=== PATIENT | male | born 1940 | race Caucasian/White ===

== ENCOUNTER 2023-10-16 20:45 | Inpatient (IN) | payer MEDICARE ==
[~2023-10-16] VITALS: Ht 170.2 cm; Wt 81.2 kg
[2023-10-16 20:51] VITALS: BP 159/62; PULSE 73; RESP 20; TEMP 97.7; O2SAT 99
[2023-10-16] MEDS ORDERED: cefTRIAXone 1,000 MG VIAL ONE (21:16)
[2023-10-16] MEDS: cefTRIAXone 1,000 MG in DEXT 5% MINI-BAG PLUS 50 ML IV ONE (21:18)
[2023-10-16] MEDS: NACL 0.9% 1,000 ML IV SCH (21:19)
[2023-10-16 21:34] LABS: BASOPHILS # (AUTO) 0.1 K/uL (0.00-0.22); BASOPHILS % (AUTO) 1.2 % (0.0-2.0); EOSINOPHILS # (AUTO) 1.1 K/uL (0-0.4); EOSINOPHILS % (AUTO) 13.6 % (0.0-4.0); HEMOGLOBIN 8.2 g/dL (12.0-18.0); LYMPHOCYTES # (AUTO) 2.6 K/uL (2.0-11.5); LYMPHOCYTES % (AUTO) 33.6 % (20.5-51.1); MEAN CORPUSCULAR HEMOGLOBIN 33 pg (27-31); MEAN CORPUSCULAR HGB CONC 34 g/dL (33-37); MEAN CORPUSCULAR VOLUME 96.5 fL (80-94); MONOCYTES # (AUTO) 0.2 K/uL (0.8-1.0); MONOCYTES % (AUTO) 2.6 % (1.7-9.3); NEUTROPHILS # (AUTO) 3.9 K/uL (1.8-7.7); PLATELET COUNT (AUTO) 266 K/uL (140-450); RED BLOOD CELL COUNT(AUTO) 2.49 MIL/uL (4.20-6.10); RED CELL DISTRIBUTION WIDTH 30.8 % (11.6-13.7); WHITE BLOOD COUNT (AUTO) 7.9 K/uL (4.8-10.8)
[2023-10-16 21:40] LABS: ANION GAP 11.9 (8-16); CARBON DIOXIDE 29.3 mmol/L (21-32); CHLORIDE 103 mmol/L (98-107); CREATININE 1.4 mg/dL (0.6-1.3); GLUCOSE 333 mg/dL (74-106); POTASSIUM 4.2 mmol/L (3.5-5.1); SODIUM SERUM 140 mmol/L (136-145); UREA NITROGEN, BLOOD 16 mg/dL (7-18)
[2023-10-16 21:51] LABS: LACTIC ACID 2.6 mmol/L (0.4-2.0)
[2023-10-16 21:54] LABS: FLU A ANTIGEN negative (NEGATIVE)
[2023-10-16 21:55] LABS: FLU B ANTIGEN NEGATIVE (NEGATIVE)
[2023-10-16 22:40] LABS: APPEARANCE,URINE CLEAR (CLEAR); BILIRUBIN,URINE NEGATIVE (NEGATIVE); BLOOD, URINE NEGATIVE (NEGATIVE); COLOR,URINE YELLOW (YELLOW); LEUKOCYTE ESTERASE ,URINE NEGATIVE (NEGATIVE); NITRITE, URINE NEGATIVE (NEGATIVE); PROTEIN,URINE 1+ (NEGATIVE); UGLUCOSE 3+ (NEGATIVE); UROBILINOGEN,URINE 0.2 EU/dL (0.2 - 1)
[2023-10-16 22:42] LABS: ALBUMIN 3.6 g/dL (3.4-5.0); BILIRUBIN,DIRECT 0.2 mg/dL (0.0-0.3); INR 0.94 (0.8-1.2); PARTIAL THROMBOPLASTIN TIME 25.4 secs (22-35.6); PROTHROMBIN TIME 9.9 secs (10.8-13.4); TOTAL BILIRUBIN 0.7 mg/dL (0.0-1.0); TOTAL PROTEIN, SERUM 6.7 g/dL (6.4-8.2)
[2023-10-16] MEDS: NACL 0.9% 1,000 ML IV ONE (22:43)
[2023-10-17] VITALS (7 sets, daily range): BP systolic 111–168; BP diastolic 63–90; PULSE 67–77; RESP 18; TEMP 97.3–98.7; O2SAT 97–99
[2023-10-17] MEDS ORDERED: POTASSIUM CHLORIDE 10 MEQ TABER PO PRN (00:20)
[2023-10-17] MEDS ORDERED: ACETAMINOPHEN 325 MG TAB PO PRN (00:20)
[2023-10-17] MEDS ORDERED: MELATONIN 3 MG TAB PO PRN (00:20)
[2023-10-17] MEDS: NACL 0.9% 1,000 ML IV SCH (00:20)
[2023-10-17] MEDS ORDERED: MAG SULF 2000 MG/WATER PREMIX 50 ML IV PRN (00:20)
[2023-10-17] MEDS ORDERED: MORPHINE SULFATE 2 MG/ML SYR IVP PRN (00:20)
[2023-10-17] MEDS ORDERED: ONDANSETRON 4 MG/2 ML VIAL IVP PRN (00:20)
[2023-10-17] MEDS ORDERED: DEXTROSE 50% 50 ML SYR IVP PRN (00:30)
[2023-10-17] MEDS: INSULIN LISPRO SLIDING SCALE 100 UNITS/ML VIAL SUBQ PRN (06:36)
[2023-10-17] MEDS: BLOOD GLUCOSE MONITORING 1 DEV DEV FS SCH (06:38)
[2023-10-18] VITALS: BP 150/65; PULSE 69; PULSE 70; RESP 18; TEMP 97.8; O2SAT 98
[2023-10-18 04:00] VITALS: BP 143/70; PULSE 68; PULSE 69; RESP 18; TEMP 97.9; O2SAT 97
[2023-10-18] MEDS: HYDROcodone/APAP 5/325 MG 1 TAB TAB PO PRN (04:49)
[2023-10-18 05:41] LABS: BASOPHILS % (AUTO) 0.5 % (0.0-2.0); EOSINOPHILS # (AUTO) 1.1 K/uL (0-0.4); EOSINOPHILS % (AUTO) 12.5 % (0.0-4.0); HEMATOCRIT 22.2 % (36-52); HEMOGLOBIN 7.5 g/dL (12.0-18.0); MEAN CORPUSCULAR HEMOGLOBIN 33 pg (27-31); MEAN CORPUSCULAR HGB CONC 34 g/dL (33-37); MEAN CORPUSCULAR VOLUME 96.6 fL (80-94); MONOCYTES # (AUTO) 0.2 K/uL (0.8-1.0); MONOCYTES % (AUTO) 2.4 % (1.7-9.3); NEUTROPHILS # (AUTO) 4.4 K/uL (1.8-7.7); NEUTROPHILS % (AUTO) 50.6 % (42.2-75.2); PLATELET COUNT (AUTO) 269 K/uL (140-450); RED CELL DISTRIBUTION WIDTH 31.1 % (11.6-13.7); WHITE BLOOD COUNT (AUTO) 8.7 K/uL (4.8-10.8)
[2023-10-18 06:10] LABS: ALANINE AMINOTRANSFERASE 26 U/L (12-78); ALBUMIN 3.3 g/dL (3.4-5.0); ALKALINE PHOSPHATASE 44 U/L (50-136); ANION GAP 10.6 (8-16); ASPARTATE AMINOTRANSFERASE 18 U/L (15-37); CALCIUM 8.3 mg/dL (8.5-10.1); CARBON DIOXIDE 27.6 mmol/L (21-32); CHLORIDE 107 mmol/L (98-107); CREATININE 1.2 mg/dL (0.6-1.3); GLUCOSE 156 mg/dL (74-106); MAGNESIUM 1.8 mg/dL (1.8-2.4); PHOSPHORUS 3.1 mg/dL (2.5-4.9); POTASSIUM 4.2 mmol/L (3.5-5.1); SODIUM SERUM 141 mmol/L (136-145); TOTAL BILIRUBIN 0.8 mg/dL (0.0-1.0); TOTAL PROTEIN, SERUM 6.2 g/dL (6.4-8.2); UREA NITROGEN, BLOOD 10 mg/dL (7-18)
[2023-10-18 08:00] VITALS: BP 159/69; PULSE 64; PULSE 67; RESP 17; TEMP 97.8; O2SAT 96
[2023-10-18] MEDS: PANTOPRAZOLE 40 MG INJ VIAL IVP SCH (08:29)
[2023-10-18 12:00] VITALS: BP 151/71; PULSE 67; PULSE 80; RESP 18; TEMP 97.8; O2SAT 100
[2023-10-18] MEDS ORDERED: HYDROCOLLOID DRESSING TP PRN (12:25)
[2023-10-18 16:00] VITALS: BP 144/68; PULSE 68; PULSE 70; RESP 18; TEMP 97.9; O2SAT 95
[2023-10-18 20:00] VITALS: BP 151/71; PULSE 64; PULSE 67; PULSE 68; RESP 18; TEMP 97.5; O2SAT 95
[2023-10-19] VITALS: BP 156/66; PULSE 61; PULSE 70; RESP 19; TEMP 97.7; O2SAT 97
[2023-10-19 04:00] VITALS: BP 148/94; PULSE 65; PULSE 69; RESP 18; TEMP 97.5; O2SAT 99
[2023-10-19 05:35] LABS: BASOPHILS # (AUTO) 0.1 K/uL (0.00-0.22); BASOPHILS % (AUTO) 0.6 % (0.0-2.0); EOSINOPHILS # (AUTO) 1.1 K/uL (0-0.4); EOSINOPHILS % (AUTO) 12.3 % (0.0-4.0); HEMATOCRIT 23.8 % (36-52); HEMOGLOBIN 7.8 g/dL (12.0-18.0); LYMPHOCYTES # (AUTO) 2.6 K/uL (2.0-11.5); LYMPHOCYTES % (AUTO) 30.8 % (20.5-51.1); MEAN CORPUSCULAR HEMOGLOBIN 32 pg (27-31); MEAN CORPUSCULAR HGB CONC 33 g/dL (33-37); MEAN CORPUSCULAR VOLUME 98.3 fL (80-94); MONOCYTES # (AUTO) 0.3 K/uL (0.8-1.0); MONOCYTES % (AUTO) 2.9 % (1.7-9.3); NEUTROPHILS # (AUTO) 4.6 K/uL (1.8-7.7); NEUTROPHILS % (AUTO) 53.4 % (42.2-75.2); PLATELET COUNT (AUTO) 283 K/uL (140-450); RED BLOOD CELL COUNT(AUTO) 2.42 MIL/uL (4.20-6.10); RED CELL DISTRIBUTION WIDTH 31.1 % (11.6-13.7); WHITE BLOOD COUNT (AUTO) 8.6 K/uL (4.8-10.8)
[2023-10-19 06:18] LABS: ALANINE AMINOTRANSFERASE 24 U/L (12-78); ALBUMIN 3.3 g/dL (3.4-5.0); ALKALINE PHOSPHATASE 47 U/L (50-136); ASPARTATE AMINOTRANSFERASE 18 U/L (15-37); CALCIUM 8.5 mg/dL (8.5-10.1); CHLORIDE 106 mmol/L (98-107); GLUCOSE 148 mg/dL (74-106); MAGNESIUM 1.9 mg/dL (1.8-2.4); PHOSPHORUS 3.7 mg/dL (2.5-4.9); POTASSIUM 4.1 mmol/L (3.5-5.1); SODIUM SERUM 140 mmol/L (136-145); TOTAL BILIRUBIN 0.8 mg/dL (0.0-1.0); TOTAL PROTEIN, SERUM 3.9 g/dL (6.4-8.2); UREA NITROGEN, BLOOD 12 mg/dL (7-18)
[2023-10-19 06:48] LABS: CARBON DIOXIDE 24.1 mmol/L (21-32); CREATININE 1.3 mg/dL (0.6-1.3)
[2023-10-19] MEDS: INSULIN LANTUS 100 UNITS/ML 10 ML VIAL SUBQ SCH (07:12)
[2023-10-19 08:00] VITALS: BP 104/73; PULSE 72; PULSE 73; RESP 16; TEMP 97.9; O2SAT 96
[2023-10-19] MEDS: HYDROCOLLOID DRESSING TP SCH (08:33)
[2023-10-19] MEDS: lisinopriL 5 MG TAB PO SCH (08:33)
[2023-10-19] MEDS ORDERED: POLYETHYLENE GLYCOL 17 GM/PKT PO SCH (10:40)
[2023-10-19] MEDS: POLYETHYLENE GLYCOL 17 GM/PKT PO PRN (10:45)
[2023-10-19 12:00] VITALS: BP 147/75; PULSE 78; RESP 17; TEMP 97.9; O2SAT 97
[2023-10-19 16:00] VITALS: BP 156/70; PULSE 84; RESP 18; TEMP 98; O2SAT 97
[2023-10-19] MEDS ORDERED: FERR325E14 PO (17:11)
[2023-10-19] MEDS ORDERED: LISI5TAB24 PO (17:11)
[2023-10-19 17:41] VITALS: BP 156/70; PULSE 84; RESP 18; TEMP 98
== END 2023-10-19 18:20 | disposition home health service (06) | DRG 812 ==
LOC: MED 20:45 → MTU 10-17 00:02
PROVIDERS: ADMIT Family Medicine; ATTEND Family Medicine
DX: D46.9 Myelodysplastic syndrome, unspecified (principal); R53.1 Weakness; E86.0 Dehydration; Z20.822 Contact with and (suspected) exposure to COVID-19; D53.9 Nutritional anemia, unspecified; I10 Essential (primary) hypertension; I25.10 Atherosclerotic heart disease of native coronary artery without angina pectoris; E11.65 Type 2 diabetes mellitus with hyperglycemia; T45.1X5A Adverse effect of antineoplastic and immunosuppressive drugs, initial encounter; Z79.899 Other long term (current) drug therapy
CPT/HCPCS: 36415; 70450; 71045; 80048; 80053; 80076; 81003; 82272; 82948; 83605; 83735; 83880; 84100; 84484; 85025; 85610; 85730; 86886; 86900; 86901; 87040; 87081; 87086; 92526; 93005; 96361; 96365; 97110; 97116; 97163-GP; 97530; 99285; C9113; J0696; J1644; J1815

== ENCOUNTER 2024-01-02 20:21 | Inpatient (IN) | payer MEDICARE ==
[~2024-01-02] VITALS: Ht 170.2 cm; Wt 81.6 kg
[~2024-01-02 20:21] MED LIST: FERR325E14 PO; LISI5TAB24 PO
[2024-01-02 20:50] VITALS: BP 120/49; PULSE 75; RESP 18; TEMP 98.2; O2SAT 98
[2024-01-02 22:13] LABS: BASOPHILS % (AUTO) 0.3 % (0.0-2.0); EOSINOPHILS # (AUTO) 0.8 K/uL (0-0.4); EOSINOPHILS % (AUTO) 7.5 % (0.0-4.0); HEMATOCRIT 21.1 % (36-52); LYMPHOCYTES # (AUTO) 1.2 K/uL (2.0-11.5); LYMPHOCYTES % (AUTO) 11.2 % (20.5-51.1); MEAN CORPUSCULAR HEMOGLOBIN 32 pg (27-31); MEAN CORPUSCULAR HGB CONC 33 g/dL (33-37); MEAN CORPUSCULAR VOLUME 97.6 fL (80-94); MONOCYTES # (AUTO) 0.3 K/uL (0.8-1.0); MONOCYTES % (AUTO) 2.8 % (1.7-9.3); NEUTROPHILS # (AUTO) 8.2 K/uL (1.8-7.7); NEUTROPHILS % (AUTO) 78.2 % (42.2-75.2); PLATELET COUNT (AUTO) 578 K/uL (140-450); RED BLOOD CELL COUNT(AUTO) 2.17 MIL/uL (4.20-6.10); RED CELL DISTRIBUTION WIDTH 24.8 % (11.6-13.7)
[2024-01-02 22:22] LABS: ANION GAP 14.3 (8-16); CALCIUM 9.1 mg/dL (8.5-10.1); CARBON DIOXIDE 26.7 mmol/L (21-32); CHLORIDE 104 mmol/L (98-107); CREATININE 1.4 mg/dL (0.6-1.3); GLUCOSE 186 mg/dL (74-106); HEMOGLOBIN 6.9 g/dL (12.0-18.0); SODIUM SERUM 141 mmol/L (136-145); UREA NITROGEN, BLOOD 21 mg/dL (7-18)
[2024-01-02 22:23] LABS: WHITE BLOOD COUNT (AUTO) 10.5 K/uL (4.8-10.8)
[2024-01-02 22:25] LABS: INR 1.03 (0.8-1.2); PARTIAL THROMBOPLASTIN TIME 27.6 secs (22-35.6); PROTHROMBIN TIME 10.8 secs (10.8-13.4)
[2024-01-03] MEDS ORDERED: GLIP10TA12 PO (01:17)
[2024-01-03] MEDS ORDERED: FERR-20 PO (01:17)
[2024-01-03] MEDS ORDERED: FOLI2000 PO (01:17)
[2024-01-03] MEDS ORDERED: CARV12.5 PO (01:17)
[2024-01-03] MEDS ORDERED: SIMV-373 PO (01:17)
[2024-01-03] MEDS ORDERED: OMEP20EC11 PO (01:17)
[2024-01-03] MEDS ORDERED: METF-346 PO (01:17)
[2024-01-03] MEDS ORDERED: OXYB5TAB44 PO (01:17)
[2024-01-03] MEDS ORDERED: LOSA-272 PO (01:17)
[2024-01-03] MEDS ORDERED: GLIP10TE1 PO (01:17)
[2024-01-03] MEDS ORDERED: ONDANSETRON 4 MG/2 ML VIAL IVP PRN (01:25)
[2024-01-03] MEDS ORDERED: DEXTROSE 50% 50 ML SYR IVP PRN (01:25)
[2024-01-03] MEDS ORDERED: HYDROcodone/APAP 5/325 MG 1 TAB TAB PO PRN (01:25)
[2024-01-03] MEDS ORDERED: ACETAMINOPHEN 325 MG TAB PO PRN (01:25)
[2024-01-03 02:02] LABS: MAGNESIUM 1.9 mg/dL (1.8-2.4); PHOSPHORUS 3.5 mg/dL (2.5-4.9)
[2024-01-03 02:58] VITALS: BP 145/67; PULSE 80; RESP 17; TEMP 97.9; O2SAT 95
[2024-01-03 03:10] VITALS: BP 145/67; PULSE 80; RESP 17; TEMP 97.9; O2SAT 95
[2024-01-03 03:30] VITALS: PULSE 80; O2SAT 95
[2024-01-03] MEDS: INSULIN LISPRO SLIDING SCALE 100 UNITS/ML VIAL SUBQ PRN (06:27)
[2024-01-03] MEDS: BLOOD GLUCOSE MONITORING 1 DEV DEV FS SCH (06:46)
[2024-01-03 08:00] VITALS: BP 148/68; PULSE 74; RESP 17; TEMP 97.8; O2SAT 99
[2024-01-03 08:16] LABS: BASOPHILS # (AUTO) 0.1 K/uL (0.00-0.22); BASOPHILS % (AUTO) 0.9 % (0.0-2.0); EOSINOPHILS # (AUTO) 0.2 K/uL (0-0.4); EOSINOPHILS % (AUTO) 2.9 % (0.0-4.0); HEMATOCRIT 29.5 % (36-52); HEMOGLOBIN 9.6 g/dL (12.0-18.0); LYMPHOCYTES # (AUTO) 2.2 K/uL (2.0-11.5); LYMPHOCYTES % (AUTO) 26.6 % (20.5-51.1); MEAN CORPUSCULAR HEMOGLOBIN 30 pg (27-31); MEAN CORPUSCULAR HGB CONC 33 g/dL (33-37); MEAN CORPUSCULAR VOLUME 93.5 fL (80-94); MONOCYTES # (AUTO) 0.3 K/uL (0.8-1.0); MONOCYTES % (AUTO) 3.2 % (1.7-9.3); NEUTROPHILS # (AUTO) 5.5 K/uL (1.8-7.7); NEUTROPHILS % (AUTO) 66.4 % (42.2-75.2); PLATELET COUNT (AUTO) 498 K/uL (140-450); RED BLOOD CELL COUNT(AUTO) 3.15 MIL/uL (4.20-6.10); RED CELL DISTRIBUTION WIDTH 21.7 % (11.6-13.7); WHITE BLOOD COUNT (AUTO) 8.3 K/uL (4.8-10.8)
[2024-01-03] MEDS ORDERED: NACL 0.9% 1,000 ML IV SCH (08:20)
[2024-01-03 08:31] LABS: ANION GAP 12.9 (8-16); CALCIUM 8.7 mg/dL (8.5-10.1); CARBON DIOXIDE 25.1 mmol/L (21-32); CHLORIDE 107 mmol/L (98-107); CREATININE 1.3 mg/dL (0.6-1.3); GLUCOSE 138 mg/dL (74-106); SODIUM SERUM 141 mmol/L (136-145); UREA NITROGEN, BLOOD 8 mg/dL (7-18)
[2024-01-03] MEDS: LOSARTAN 25 MG TAB PO SCH (09:06)
[2024-01-03] MEDS: FERROUS SULFATE 325 MG TABEC PO SCH (09:06)
[2024-01-03] MEDS: OXYBUTYNIN 5 MG TAB PO SCH (09:06)
[2024-01-03] MEDS: FOLIC ACID 1 MG TAB PO SCH (09:06)
[2024-01-03] MEDS: carvediloL 12.5 MG TAB PO SCH (09:06)
[2024-01-03 10:29] VITALS: PULSE 74
[2024-01-03 15:26] VITALS: BP 136/59; PULSE 67; RESP 18; TEMP 97.9
== END 2024-01-03 16:50 | disposition home or self-care (01) | DRG 812 ==
LOC: MED 20:21 → MTU 01-03 01:23
PROVIDERS: ADMIT Student in an Organized Health Care Education/Training Program; ATTEND Student in an Organized Health Care Education/Training Program
PROC: 302A3N1 Transfusion of Nonautologous Red Blood Cells into Bone Marrow, Percutaneous Approach (ICD-10-PCS; principal; 2024-01-03)
DX: D64.81 Anemia due to antineoplastic chemotherapy (principal); D46.9 Myelodysplastic syndrome, unspecified; D75.839 Thrombocytosis, unspecified; I10 Essential (primary) hypertension; D63.0 Anemia in neoplastic disease; E11.9 Type 2 diabetes mellitus without complications; Z79.899 Other long term (current) drug therapy; Z88.8 Allergy status to other drugs, medicaments and biological substances; Z90.49 Acquired absence of other specified parts of digestive tract
CPT/HCPCS: 36415; 36430; 80048; 82948; 83735; 84100; 85025; 85610; 85730; 86886; 86900; 86901; 86920; 87081; 97116; 97163-GP; 99285; J1815; P9016